=== PATIENT | male | born 1950 | race Caucasian/White ===

== ENCOUNTER 2024-04-18 10:27 | Inpatient (IN) | payer MEDICARE, MEDICAID ==
[~2024-04-18] VITALS: Ht 172.7 cm; Wt 57.2 kg
[2024-04-18 11:13] LABS: COVID AG,FIA SOURCE NASAL SWAB
[2024-04-18 11:23] LABS: BASOPHILS % (AUTO) 0.6 % (0.0-2.0); EOSINOPHILS % (AUTO) 1.7 % (1.0-6.0); HEMATOCRIT 36.3 % (41-53); HEMOGLOBIN 11.7 g/dL (13.5-17.5); LYMPHOCYTES # (AUTO) 1.7 K/uL (1.0-4.8); LYMPHOCYTES % (AUTO) 18.2 % (22.0-44.0); MEAN CORPUSCULAR HEMOGLOBIN 28.9 pg (26.0-34.0); MEAN CORPUSCULAR HGB CONC 32.3 G/dL (31.0-37.0); MEAN CORPUSCULAR VOLUME 90 fL (80-100); MONOCYTES # (AUTO) 0.6 K/uL (0.1-1.0); NEUTROPHILS # (AUTO) 6.8 K/uL (1.8-7.7); NEUTROPHILS % (AUTO) 73.5 % (40.0-70.0); PLATELET COUNT (AUTO) 352 K/uL (150-450); RED BLOOD CELL COUNT(AUTO) 4.05 MIL/uL (4.50-5.90); RED CELL DISTRIBUTION WIDTH 15.3 % (11.5-14.5); WHITE BLOOD COUNT (AUTO) 9.3 K/uL (4.5-11.0)
[2024-04-18 11:37] LABS: ANION GAP 2 mmol/L (8-16); B-TYPE NATRIURETIC PEPTIDE 27 pg/mL (0-100); CARBON DIOXIDE 32 mmol/L (22-29); CHLORIDE 105 mmol/L (98-107); CREATININE 0.97 mg/dL (0.60-1.30); GLUCOSE,RANDOM 80 mg/dL (70-110); POTASSIUM 3.5 mmol/L (3.5-5.1); SODIUM SERUM 139 mmol/L (136-145); UREA NITROGEN, BLOOD 22 mg/dL (7-18)
[2024-04-18 11:38] LABS: CALCIUM, TOTAL 8.9 mg/dL (8.8-10.5); GLOMERULAR FILTR. RATE CALC > 60 mL/min (>60)
[2024-04-18 11:39] LABS: PROTHROMBIN TIME 10.1 SEC (9.4-11.6)
[2024-04-18 11:44] LABS: TROPONIN I-HIGH SENSITIVITY 8 ng/L (<76)
[2024-04-18 11:45] LABS: SARS-COV2 (COVID) ANTIGEN,FIA Negative (Negative)
[2024-04-18 11:47] LABS: INFLUENZA TYPE A NEGATIVE FOR TYPE A (NEGATIVE); INFLUENZA TYPE B NEGATIVE FOR TYPE B (NEGATIVE)
[2024-04-18 12:07] LABS: ALANINE AMINOTRANSFERASE 16 U/L (12-78); ALKALINE PHOSPHATASE 73 U/L (46-116); ASPARTATE AMINOTRANSFERASE 25 U/L (15-37); BILIRUBIN,TOTAL 0.7 mg/dL (0.1-1.0); CREATINE KINASE, TOTAL ONLY 112 U/L (39-308); PHOSPHORUS 2.5 mg/dL (2.5-4.9); TOTAL PROTEIN, SERUM 6.7 g/dL (6.4-8.2)
[2024-04-18] MEDS ORDERED: ONDANSETRON HCL 4 MG/2 ML VIAL IVP PRN (13:15)
[2024-04-18 14:45] VITALS: BP 155/83; PULSE 73; RESP 18; TEMP 97.6; O2SAT 99
[2024-04-18 15:30] VITALS: BP 142/85; PULSE 85; RESP 16; TEMP 97.6; O2SAT 99
[2024-04-18] MEDS: HEPARIN SODIUM,PORCINE 5,000 UNITS/ML VIAL SQ SCH (16:58)
[2024-04-18] MEDS: DEXTROSE 5%-LACTATED RINGERS 1,000 ML IV SCH (16:59)
[2024-04-18 19:28] VITALS: BP 139/88; PULSE 78; RESP 17; TEMP 98.2; O2SAT 98
[2024-04-18] MEDS ORDERED: 0.9% SODIUM CHLORIDE 10 ML SYRINGE IVP ONE (20:54)
[2024-04-18] MEDS ORDERED: SODIUM CHLORIDE 0.9% 100 ML ONE (20:54)
[2024-04-18] MEDS ORDERED: IOHEXOL 350 MG/ML 100 ML VIAL ONE (20:54)
[2024-04-18 23:44] VITALS: BP 103/66; PULSE 61; RESP 18; TEMP 97.8; O2SAT 97
[2024-04-19 05:16] VITALS: BP 114/66; PULSE 67; RESP 18; TEMP 98.3; O2SAT 93
[2024-04-19 06:59] LABS: EOSINOPHILS % (AUTO) 2.5 % (1.0-6.0); HEMATOCRIT 34.8 % (41-53); HEMOGLOBIN 11.3 g/dL (13.5-17.5); LYMPHOCYTES # (AUTO) 1.7 K/uL (1.0-4.8); LYMPHOCYTES % (AUTO) 24.9 % (22.0-44.0); MEAN CORPUSCULAR HEMOGLOBIN 28.9 pg (26.0-34.0); MEAN CORPUSCULAR HGB CONC 32.3 G/dL (31.0-37.0); MEAN CORPUSCULAR VOLUME 89 fL (80-100); MONOCYTES # (AUTO) 0.5 K/uL (0.1-1.0); MONOCYTES % (AUTO) 6.8 % (2.0-9.0); NEUTROPHILS # (AUTO) 4.5 K/uL (1.8-7.7); NEUTROPHILS % (AUTO) 64.8 % (40.0-70.0); PLATELET COUNT (AUTO) 328 K/uL (150-450); RED CELL DISTRIBUTION WIDTH 15.2 % (11.5-14.5); WHITE BLOOD COUNT (AUTO) 6.9 K/uL (4.5-11.0)
[2024-04-19 07:21] LABS: ANION GAP 7 mmol/L (8-16); CALCIUM, TOTAL 8.4 mg/dL (8.8-10.5); CARBON DIOXIDE 28 mmol/L (22-29); CHLORIDE 106 mmol/L (98-107); CREATININE 0.87 mg/dL (0.60-1.30); GLOMERULAR FILTR. RATE CALC > 60 mL/min (>60); GLUCOSE,RANDOM 80 mg/dL (70-110); POTASSIUM 4.1 mmol/L (3.5-5.1); SODIUM SERUM 141 mmol/L (136-145); UREA NITROGEN, BLOOD 19 mg/dL (7-18)
[2024-04-19] MEDS: CLINDAMYCIN 300 MG/D5% WATER 50 ML IV SCH (08:00)
[2024-04-19 08:05] VITALS: BP 125/77; PULSE 66; RESP 18; TEMP 97.9; O2SAT 97
[2024-04-19] MEDS ORDERED: SODIUM CHLORIDE 0.9% 250 ML IV ONE (09:11)
[2024-04-19 11:52] VITALS: PULSE 70; RESP 18
[2024-04-19 20:00] VITALS: BP 127/80; PULSE 78; RESP 18; TEMP 97.8; O2SAT 99
[2024-04-19] MEDS: ACETAMINOPHEN 325 MG TABLET PO PRN (20:54)
[2024-04-20 04:00] VITALS: BP 133/81; PULSE 76; RESP 18; TEMP 97.6; O2SAT 99
[2024-04-20 10:09] VITALS: BP 131/79; PULSE 95; RESP 18; TEMP 97.9; O2SAT 96
[2024-04-20] MEDS: ASPIRIN 81 MG CHEWABLE TABLET PO ONE (11:42)
[2024-04-20 12:20] LABS: GLUCOMETER DEV NAME(LOC) 6S.2; GLUCOSE,POINT OF CARE 202 MG/DL (70-110)
[2024-04-20] MEDS ORDERED: DEXTROSE 50%-WATER 25 GM/50 ML SYRINGE IVP PRN (13:00)
[2024-04-20] MEDS: RINGERS SOLUTION,LACTATED 1,000 ML IV ONE (14:20)
[2024-04-20 15:43] VITALS: BP 120/76; PULSE 79; RESP 18; TEMP 97.5; O2SAT 97
[2024-04-20 17:15] VITALS: BP 114/70; PULSE 91; RESP 16; TEMP 98.6; O2SAT 96
[2024-04-20 20:27] VITALS: BP 138/83; PULSE 84; RESP 19; TEMP 98; O2SAT 97
[2024-04-20] MEDS: ATORVASTATIN CALCIUM 40 MG TABLET PO SCH (21:01)
[2024-04-20 22:33] LABS: TROPONIN I-HIGH SENSITIVITY 7 ng/L (<76)
[2024-04-21 00:09] VITALS: BP 156/108; PULSE 110; RESP 19; TEMP 98.1; O2SAT 97
[2024-04-21 01:42] LABS: CHOL/HDL RATIO 2.3 (4.2-7.3)
[2024-04-21 04:35] VITALS: BP 152/84; PULSE 95; RESP 19; TEMP 98.4; O2SAT 98
[2024-04-21 07:10] LABS: GLUCOMETER DEV NAME(LOC) 5N.2C; GLUCOSE,POINT OF CARE 71 MG/DL (70-110)
[2024-04-21 07:16] LABS: GLUCOMETER DEV NAME(LOC) 5S.2D; GLUCOSE,POINT OF CARE 106 MG/DL (70-110)
[2024-04-21 07:30] LABS: BASOPHILS % (AUTO) 0.5 % (0.0-2.0); EOSINOPHILS % (AUTO) 0.2 % (1.0-6.0); HEMATOCRIT 38.1 % (41-53); HEMOGLOBIN 12.7 g/dL (13.5-17.5); LYMPHOCYTES % (AUTO) 12.1 % (22.0-44.0); MEAN CORPUSCULAR HEMOGLOBIN 29.5 pg (26.0-34.0); MEAN CORPUSCULAR HGB CONC 33.3 G/dL (31.0-37.0); MEAN CORPUSCULAR VOLUME 89 fL (80-100); MONOCYTES # (AUTO) 0.3 K/uL (0.1-1.0); MONOCYTES % (AUTO) 3.8 % (2.0-9.0); NEUTROPHILS # (AUTO) 7.1 K/uL (1.8-7.7); NEUTROPHILS % (AUTO) 83.4 % (40.0-70.0); PLATELET COUNT (AUTO) 386 K/uL (150-450); RED BLOOD CELL COUNT(AUTO) 4.29 MIL/uL (4.50-5.90); RED CELL DISTRIBUTION WIDTH 15.7 % (11.5-14.5); WHITE BLOOD COUNT (AUTO) 8.5 K/uL (4.5-11.0)
[2024-04-21 07:39] LABS: ANION GAP 11 mmol/L (8-16); CALCIUM, TOTAL 8.6 mg/dL (8.8-10.5); CARBON DIOXIDE 25 mmol/L (22-29); CHLORIDE 102 mmol/L (98-107); CREATININE 1.09 mg/dL (0.60-1.30); GLOMERULAR FILTR. RATE CALC > 60 mL/min (>60); GLUCOSE,RANDOM 85 mg/dL (70-110); POTASSIUM 4.5 mmol/L (3.5-5.1); SODIUM SERUM 138 mmol/L (136-145); UREA NITROGEN, BLOOD 18 mg/dL (7-18)
[2024-04-21 07:41] LABS: TROPONIN I-HIGH SENSITIVITY 8 ng/L (<76)
[2024-04-21 07:45] VITALS: BP 145/82; PULSE 94; RESP 20; TEMP 98.2; O2SAT 97
[2024-04-21] MEDS: ASPIRIN 81 MG CHEWABLE TABLET PO SCH (08:49)
[2024-04-21] MEDS: CLOPIDOGREL BISULFATE 75 MG TABLET PO SCH (08:49)
[2024-04-21 12:13] VITALS: BP 97/61; PULSE 83; RESP 19; TEMP 98.2; O2SAT 98
[2024-04-21 15:08] VITALS: BP 124/74; PULSE 100; RESP 18; TEMP 98; O2SAT 99
[2024-04-21 19:52] VITALS: BP 112/80; PULSE 97; RESP 18; TEMP 98.2; O2SAT 97
[2024-04-21 21:16] LABS: GLUCOMETER DEV NAME(LOC) 5S.1C; GLUCOSE,POINT OF CARE 107 MG/DL (70-110)
[2024-04-21 21:16] LABS: GLUCOMETER DEV NAME(LOC) 5S.1C; GLUCOSE,POINT OF CARE 115 MG/DL (70-110)
[2024-04-22] VITALS (9 sets, daily range): BP systolic 108–125; BP diastolic 60–79; PULSE 72–89; RESP 18–19; TEMP 97.3–98.2; O2SAT 97–98
[2024-04-22 05:50] LABS: GLUCOMETER DEV NAME(LOC) 5N.2C; GLUCOSE,POINT OF CARE 132 MG/DL (70-110)
[2024-04-22 06:44] LABS: BASOPHILS % (AUTO) 1.2 % (0.0-2.0); EOSINOPHILS % (AUTO) 3.1 % (1.0-6.0); HEMATOCRIT 36.3 % (41-53); LYMPHOCYTES # (AUTO) 1.5 K/uL (1.0-4.8); LYMPHOCYTES % (AUTO) 25.7 % (22.0-44.0); MEAN CORPUSCULAR HEMOGLOBIN 29.4 pg (26.0-34.0); MEAN CORPUSCULAR HGB CONC 33.1 G/dL (31.0-37.0); MEAN CORPUSCULAR VOLUME 89 fL (80-100); MONOCYTES # (AUTO) 0.7 K/uL (0.1-1.0); MONOCYTES % (AUTO) 11.5 % (2.0-9.0); NEUTROPHILS # (AUTO) 3.3 K/uL (1.8-7.7); NEUTROPHILS % (AUTO) 58.5 % (40.0-70.0); PLATELET COUNT (AUTO) 321 K/uL (150-450); RED BLOOD CELL COUNT(AUTO) 4.08 MIL/uL (4.50-5.90); RED CELL DISTRIBUTION WIDTH 15.5 % (11.5-14.5); WHITE BLOOD COUNT (AUTO) 5.7 K/uL (4.5-11.0)
[2024-04-22 07:01] LABS: ANION GAP 10 mmol/L (8-16); CALCIUM, TOTAL 8.7 mg/dL (8.8-10.5); CARBON DIOXIDE 26 mmol/L (22-29); CHLORIDE 107 mmol/L (98-107); CREATININE 1.07 mg/dL (0.60-1.30); GLOMERULAR FILTR. RATE CALC > 60 mL/min (>60); GLUCOSE,RANDOM 81 mg/dL (70-110); POTASSIUM 4.4 mmol/L (3.5-5.1); SODIUM SERUM 143 mmol/L (136-145); UREA NITROGEN, BLOOD 23 mg/dL (7-18)
[2024-04-22 09:05] LABS: GLUCOMETER DEV NAME(LOC) 5S.1C; GLUCOSE,POINT OF CARE 88 MG/DL (70-110)
[2024-04-22 12:31] LABS: GLUCOMETER DEV NAME(LOC) 5N.2C; GLUCOSE,POINT OF CARE 97 MG/DL (70-110)
[2024-04-22] MEDS: INSULIN LISPRO 100 UNITS/ML SQ PRN (20:06)
[2024-04-22 22:23] LABS: GLUCOMETER DEV NAME(LOC) 5S.1C; GLUCOSE,POINT OF CARE 112 MG/DL (70-110)
[2024-04-22 22:23] LABS: GLUCOMETER DEV NAME(LOC) 5S.1C; GLUCOSE,POINT OF CARE 186 MG/DL (70-110)
[2024-04-23] MEDS: KETOROLAC TROMETHAMINE 15 MG/ML VIAL IVP ONE (01:11)
[2024-04-23 04:34] VITALS: BP 120/79; PULSE 72; RESP 19; TEMP 98.1; O2SAT 97
[2024-04-23 06:06] LABS: GLUCOMETER DEV NAME(LOC) 5N.2C; GLUCOSE,POINT OF CARE 84 MG/DL (70-110)
[2024-04-23 08:22] VITALS: BP 124/76; PULSE 72; RESP 18; TEMP 98; O2SAT 96
[2024-04-23] MEDS ORDERED: CLOP75TA60 PO (10:52)
[2024-04-23] MEDS ORDERED: ASPI-1450 PO (10:52)
[2024-04-23] MEDS ORDERED: ATOR40TA71 PO (10:52)
[2024-04-23] MEDS ORDERED: CLIN300C58 PO (10:53)
[2024-04-23 15:37] VITALS: BP 115/74; PULSE 88; RESP 19; TEMP 98.2; O2SAT 98
[2024-04-23 17:20] LABS: GLUCOMETER DEV NAME(LOC) 5N.2C; GLUCOSE,POINT OF CARE 133 MG/DL (70-110)
== END 2024-04-23 16:35 | DRG 177 ==
LOC: EMS 11:41 → EDH 13:30 → 5S 14:10 → 6S 04-19 14:28 → 5S 04-20 15:58
PROVIDERS: ADMIT Internal Medicine; ATTEND Internal Medicine
DX: J69.0 Pneumonitis due to inhalation of food and vomit (principal); E43 Unspecified severe protein-calorie malnutrition; G93.41 Metabolic encephalopathy; G45.9 Transient cerebral ischemic attack, unspecified; E87.3 Alkalosis; G91.9 Hydrocephalus, unspecified; D62 Acute posthemorrhagic anemia; E87.20 Acidosis, unspecified; I69.351 Hemiplegia and hemiparesis following cerebral infarction affecting right dominant side; Z68.1 Body mass index [BMI] 19.9 or less, adult; M62.82 Rhabdomyolysis; R41.89 Other symptoms and signs involving cognitive functions and awareness; R63.4 Abnormal weight loss; Z20.822 Contact with and (suspected) exposure to COVID-19; E83.39 Other disorders of phosphorus metabolism; Z85.841 Personal history of malignant neoplasm of brain; Z88.0 Allergy status to penicillin; Z63.8 Other specified problems related to primary support group; Z91.199 Patient's noncompliance with other medical treatment and regimen due to unspecified reason
CPT/HCPCS: 70450; 70496; 70498; 71045; 71260; 72193; 74160; 80048; 80053; 80061; 82550; 82962; 83036; 83735; 83880; 84100; 84484; 85025; 85610; 85730; 86850; 86900; 86901; 87804; 93005; 93306; 93880; 97116; 97163; 97165; 97168; 97530; 97535; 99285; J1644; J1885; J3490; J7050; J7120; 36415-L1; 36415-TC